=== PATIENT | female | born 1945 | race Caucasian/White ===

== ENCOUNTER 2018-01-30 14:25 | Emergency (ER) | payer SELFPAY ==
[2018-01-30 14:26] VITALS: BP 155/72; PULSE 81; RESP 18; TEMP 36.7; O2SAT 96
--- NOTE | 2018-01-30 15:11 | ED.VISSUMM ---
- ER Visit Summary Date of Service: 01/30/18 Chief Complaint: Eye redness History of Present Illness: The patient is a 72 F presents to the emergency department eye redness. Patient states over the past 24 hours, she began have some redness and crusting of her right eye. She states since moved her left. She describes a mild irritation. She has had some mild nasal drainage. She denies any fevers or chills. She wears glasses. She denies any visual change. Patient has no history of eye surgery or immunosuppression. She is otherwise healthy. Physical Examination: Name is relatively unremarkable. The patient does have evidence of conjunctivitis of both eyes. There is some scant crusting of the lids. There is cobblestoning beneath the lids. There is no hyphema. There is no hypopyon. Extraocular muscles are intact. Accommodation is normal. Test Results: [] Emergency Department Course and Treatment: Patient's exam is unremarkable. She does have evidence of conjunctivitis. I do feel that this is likely viral in nature, but given the irritation I will cover her with topical antibiotics. Patient is comfortable this plan of care. She will be given outpatient ophthalmology follow-up if she does not have improvement over the next 24 hours. Patient will be discharged home. Treatment Plan: [] Disposition: Discharge Impression: 1. Conjunctivitis This note was generated with [employer] dictation software. It may contain incorrect words, spelling, and punctuation that were not noted in review of the chart prior to signing ED Disposition - Plan for ED Patient: Chief Complaint: Eye Problem Instructions: ED Conjunctivitis Bacterial Prescriptions: Erythromycin Ophthalmic 1 applic EACH EYE 4X/DAY #1 opth.tube Referrals: Jim Cottrell MD [STAFF PHYSICIAN] - 1-2 Days if not improving
--- NOTE | 2018-01-30 15:24 | NURSING ---
per pt, vision is same as it usually is. needs to have cataract surgery
[2018-01-30] MEDS: Erythromycin Base 1 OPTH.TUBE 1 APPLIC EACH EYE (15:25)
== END 2018-01-30 15:34 | disposition home or self-care (01) ==
PROVIDERS: Emergency Provider Emergency Medicine; Family Provider Family Medicine; PCP Family Medicine
DX: H10.9 Unspecified conjunctivitis (principal)
CPT/HCPCS: 99283

== ENCOUNTER 2019-09-22 05:27 | Inpatient (IN) | payer MEDICARE, SELFPAY ==
[2019-09-22] VITALS (8 sets, daily range): BP systolic 152–180; BP diastolic 72–88; PULSE 76–87; RESP 18–20; TEMP 36.6–37.4; O2SAT 94–97; BMI 29.1
--- NOTE | 2019-09-22 05:36 | CT_ITS ---
STUDY: CT ABDOMEN AND PELVIS WITHOUT CONTRAST REASON FOR EXAM: Female, 73 years old. UPPER ABDOMINAL PAIN SINCE LAST AFTERNON RADIATION DOSAGE (If Supplied By Facility): CTDIvol = ( 13.99 ) mGy, DLP = ( 805.93 ) mGycm TECHNIQUE: Transaxial images were obtained from the dome of the diaphragm to the symphysis pubis without oral contrast, and without intravenous contrast. Sagittal and coronal images were reconstructed. Individualized dose optimization techniques were used for this CT. COMPARISON: None. FINDINGS: The visualized lung bases are unremarkable. The visualized portions of the heart are within normal limits. Normal liver. Normal gallbladder and extrahepatic biliary system. Normal spleen. Normal pancreas. Normal bilateral adrenal glands. Normal right kidney. Normal left kidney. There is a small hiatal hernia. There are dilated loops of the small intestine with a non-distended colon consistent with a partial small bowel obstruction. There is thickening of the rubio of the distal ileal loops has nonspecific appearance suggesting edema may be due to gastroenteritis, hemorrhage or ischemia. Normal colon. The appendix is visualized and appears normal. Normal abdominal aorta. Normal inferior vena cava. Normal retroperitoneum. Normal urinary bladder. Normal abdominal wall. Normal osseous structures. CT/Abdomen/Pelvis W IV Cont ONLY IMPRESSION: Partial small bowel obstruction. There is thickening of the rubio of the distal ileal loops has nonspecific appearance suggesting edema may be due to gastroenteritis, hemorrhage or ischemia. Electronically Signed: Violetta Navarro, at 6:45 EST Tel , Service support ,
[2019-09-22 05:42] LABS: Absolute Lymphocyte Count 1.05 X10^3/uL (0.83-4.51); Absolute Neutrophil Count 5.7 X10^3/uL (2.0-7.7); Basophil# 0.03 X10^3/uL; Basophil% 0.4 % (0-1); Eosinophil# 0.03 X10^3/uL; Eosinophils% 0.4 % (0-5); Hematocrit 43.3 % (37-47); Hemoglobin 14.1 g/dL (12.0-15.0); Lymphocyte # 1.05 X10^3/ul (4.0); Lymphocyte % 14.4 % (19-41); Mean Corp Hgb Conc 32.6 g/dL (32-36); Mean Corpuscular Hgb 30.4 pg (27.0-32.0); Mean Corpuscular Volume 93.3 fL (81-99); Mean Platelet Vol. 9.6 fl (6.2-12.0); Monocyte# 0.48 X10^3/uL; Monocyte% 6.6 % (0-10); NRBC Flagged by Analyzer 0 % (0-5); Neutrophil # 5.69 X10^3/uL (2.7-7.7); Neutrophil % 77.8 % (47-70); Platelet Count 230 K/mm3 (150-450); RBC Distribution Width CV 12.7 % (11.6-14.6); RBC Distribution Width SD 43.4 fl (35.1-43.9); Red Blood Count 4.64 M/mm3 (4.2-5.4); White Blood Count 7.3 K/mm3 (4.4-11.0)
[2019-09-22] MEDS: 0.9% Normal Saline 1,000 ML 1000 ML IV (05:42)
[2019-09-22] MEDS: Ondansetron 4 MG/2 ML Vial IV (05:42)
[2019-09-22] MEDS: Morphine 4 MG/ML Syringe IV (05:42)
[2019-09-22 05:58] LABS: ALB/GLOB Ratio 1.1 RATIO (0.9-2.4); AST(SGOT) 17 U/L (15-37); Alanine Aminotransfer ALT/SGPT 20 U/L (13-56); Albumin, Serum 3.8 g/dL (3.2-5.0); Alkaline Phosphatase 109 U/L (45-117); Anion Gap 7 (5-15); BUN 20 mg/dL (7-18); BUN/Creat Ratio 26.5 RATIO (10-20); Chloride 105 mmol/L (98-107); Creatinine, Serum 0.76 mg/dL (0.55-1.02); EST Glomerular Filtration Rate 80 mL/min (>60); Est Glom Filt Rate - Afr Amer 97 mL/min (>60); Estimated Creatinine Clearance 38.94 ml/min; Globulin 3.4 g/dL (2.2-4.2); Glucose 112 mg/dL (74-106); Lipase 84 U/L (73-393); Protein, Total 7.2 g/dL (6.4-8.2); Sodium Level 138 mmol/L (136-145)
[2019-09-22 06:31] LABS: Bacteria 0 SEEN /hpf (None Seen); Mucous, Urine 0 SEEN /hpf (<or=2+)
[2019-09-22 06:32] LABS: Color, Urine Yellow (Yellow); Glucose, Dipstick Normal (Normal); Leukocyte Esterase-Dipstick 25 /ul (Negative); Nitrite-Dipstick Negative (Negative); Occult Blood-Urine 10 /ul (Negative); Protein-Dipstick Negative (Negative); Urine Bilirubin Dipstick Negative (Negative); Urine Clarity Clear (Clear); Urine Urobilinogen Normal (Normal)
[2019-09-22 06:33] LABS: Ketone-Dipstick 150 mg/dl (Negative)
--- NOTE | 2019-09-22 06:36 | ED.DCSUM_ITS ---
- ER Visit Summary Date of Service: 09/22/19 Chief Complaint: Abdominal pain History of Present Illness: The patient is a 73 F who presents from home with abdominal pain. The pain is in her epigastric region. It started yesterday in the afternoon. Nothing seemed to bring it on or make it worse. Nothing seems to make it better. It does not radiate. Associated with some nausea. Denies vomiting or other GI symptoms. Denies chest pain or shortness of breath. Denies any urinary symptoms. Denies fevers. Denies change in medications. History of appendectomy. Physical Examination: Afebrile and vital signs unremarkable. Alert and oriented. No acute distress, but appears uncomfortable. Heart regular rate and rhythm. Lungs clear. Abdomen soft, but tender in the epigastric region. No guarding or rebound. Skin appears normal. Test Results: CBC normal. Glucose 112 and BUN 20. Hepatic panel and lipase normal. Urinalysis unremarkable. CT pending at the time of this dictation. Emergency Department Course and Treatment: Patient was treated with fluids, morphine, Zofran while awaiting results. Blood work unremarkable. Urinalysis unremarkable. CT showed a partial small bowel obstruction with wall thickening of the distal ileum. Uncertain etiology. Patient is not having distention or vomiting right now, so I did not place an NG tube. Patient will need pain control, fluids. I called the hospitalist for admission. The patient's appendectomy in the remote past was performed by Dr. Galaviz. Dr. Alston accepted the patient. Asked me to notify Dr. Blanton. Dr. Blanton advised NG tube. Placement and X-ray pending. Dr. Denton aware. Treatment Plan: As above Disposition: Admission Impression: 1. Partial small bowel obstruction This note was generated with [employer] software. It may contain incorrect words, spelling, and punctuation that were not noted in review of the chart prior to signing ED Disposition - Plan for ED Patient: Referrals: Jason Zamorano MD [Primary Care Provider] -
[2019-09-22 06:37] LABS: Red Blood Cells-Urine 0-5 SEEN /hpf (0-5); Squamous Epithelial Cells - UA 0-5 SEEN /hpf (5-10); White Blood Cells 0-5 SEEN /hpf (0-5)
--- NOTE | 2019-09-22 07:13 | NURSING ---
MED SURG SBO PAINTSIL
--- NOTE | 2019-09-22 07:13 | PCM.HP.STD ---
Problem List (1) SBO (small bowel obstruction) Status: Acute History of Present Illness Date of Admission: 09/22/19 Chief Complaint: Abdominal pain - 2 days The patient is a 73 year old F no significant past medical history who presents with abdominal discomfort, crampy in nature, nonradiating, with no relieving or aggravating factor that happened the evening before admission. Patient has a history of laparoscopic appendectomy done [address] Galaviz. She had 2 loose stools last night. She has nausea but has not vomited. She denied fever or chills. Vitals in the ED was temperature 98.7 F, heart rate 85, blood pressure 169/88, respiratory rate 18, SPO2 was 96% on room air. Admitting blood work showed unremarkable CBC D and CMP. UA was also unremarkable. CT of the abdomen and pelvis shows small hiatal hernia, dilated loops of small intestine with nondistended colon, history of partial small bowel obstruction and thinning of the distal ileal loops. 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 Denies: Anorexia, Chills, Fever, Malaise, Weight Change Eyes: Denies: Blurred vision, Cataracts, Conjunctivae Inflammation, Double vision, Pain, Redness, Vision Change HEENT: Denies: Difficulty Hearing, Difficulty Swallowing, Head Aches, Hearing Changes, Sinus Congestion, Sinus Drainage Cardiovascular: Denies: Chest Pain, Claudication, Orthopnea, Palpitations Respiratory: Denies: Cough, Hemoptysis, Shortness of breath at rest, Shortness of breath upon exertion, Sputum production Gastrointestinal: Reports: Abdominal Pain, Diarrhea, Nausea. Denies: Dyspepsia, Hematemesis, Hematochezia, Melena, Vomiting Genitourinary: Denies: Dysuria, Frequency Musculoskeletal: Denies: Joint Pain, Joint stiffness, Joint swelling, Joint Tenderness Skin: Denies: Rash, Wounds Neurological: Denies: Blurred vision, Difficulty swallowing, Focal weakness, Numbness, Tingling Psychiatric: Denies: Anxiety, Depression, Homicidal Ideations, Suicidal Ideations Hematologic/ Lymphatic: Denies: Easy Bruising, Easy Bleeding VTE Information - Inpt Only VTE Present on Admission: No VTE Pharm Prophylaxis ordered?: Yes Patient Problems: Active and Suspected Problems SBO (small bowel obstruction) (Acute) - Physical Exam Vitals/I&O's: Vital Signs Temp Pulse Resp BP Pulse Ox 98.7 F 85 18 169/88 H 96 09/22/19 05:28 09/22/19 05:28 09/22/19 05:28 09/22/19 05:28 09/22/19 05:28 Oxygen Delivery Method Room Air Weight: 70 kg Body Mass Index (BMI) 29.1 General: Alert, Oriented x3, Cooperative, No apparent distress HEENT: Atraumatic, PERRLA, EOMI, Normocephalic Oral: Moist Mucosa Neck: Supple Lungs: Clear to auscultation, Normal air movement Cardiovascular: Regular rate, Regular Rhythm, Normal S1, Normal S2, No murmurs Abdomen: Bowel Sounds Present, Soft, Non-Distended, Hyperactive Bowel Sounds, Tender - over the upper abdomen, with guarding, no rebound tenderness Extremities: No edema Skin: No rashes, No breakdown Musculoskeletal: No Tenderness to Palpation of Joints or Extremities Lymphatic: No Cervical, Supraclavicular, or Inguinal Adenopathy Neurological: Cranial nerves II-XII grossly intact, Neuro grossly intact Psych/Mental Status: Normal Affect, Appropriate Laboratory Results 09/22/19 05:30: WBC 7.3, RBC 4.64, Hgb 14.1, Hct 43.3, MCV 93.3, MCH 30.4, MCHC 32.6, RDW Std Deviation 43.4, RDW Coeff of Renée 12.7, Plt Count 230, MPV 9.6, Immature Gran % (Auto) 0.400, Neut % (Auto) 77.8 H, Lymph % (Auto) 14.4 L, [place] % (Auto) 6.6, Eos % (Auto) 0.4, Baso % (Auto) 0.4, Absolute Neuts (auto) 5.7, Absolute Lymphs (auto) 1.05, Nucleated RBC % 0 09/22/19 05:30: Sodium 138, Potassium 4.0, Chloride 105, Carbon Dioxide 26.0, Anion Gap 7, BUN 20 H, Creatinine 0.76, Estim Creat Clear Calc 38.94, Est GFR (MDRD) Af Amer 97, Est GFR (MDRD) Non-Af 80, BUN/Creatinine Ratio 26.5 H, Glucose 112 H, Calcium 9.0, Total Bilirubin 0.90, AST 17, ALT 20, Alkaline Phosphatase 109, Total Protein 7.2, Albumin 3.8, Globulin 3.4, Albumin/Globulin Ratio 1.1, Lipase 84 09/22/19 06:27: Urine Color Yellow, Urine Clarity Clear, Urine pH 7.0, Ur Specific [place] 1.010, Urine Protein Negative, Urine Glucose (UA) Normal, Urine Ketones 150 H, Urine Occult Blood 10 H, Urine Nitrite Negative, Urine Bilirubin Negative, Urine Urobilinogen Normal, Ur Leukocyte Esterase 25 H, Urine RBC 0-5 SEEN, Urine WBC 0-5 SEEN, Ur Squamous Epith Cells 0-5 SEEN, Urine Bacteria 0 SEEN, Urine Mucus 0 SEEN Assessment/Plan All Active Problems SBO (small bowel obstruction) (Acute) Appendicitis (Acute) 73 year old F no significant past medical history who presents with abdominal discomfort and found to have partial small bowel obstruction on CT scan of abdomen and pelvis. 1. Partial small bowel obstruction likely secondary to adhesions. History of laparoscopic appendectomy 2 years ago Will admit to med-surg floor, keep NPO, gentle IVF, pain control, general surgery consult 2. Elevated BP, likely related to pain, no history of hypertension Will continue to monitor 3. DVT PPx- Heparin SC Code Visit Inpatient E&M: 28854 Init Hosp L2
--- NOTE | 2019-09-22 07:13 | NURSING ---
DR LORENZO HANNON AND DR AVITIA TALKED TO HER
--- NOTE | 2019-09-22 10:43 | CM.UR ---
RN CM Assessment Introduced role of RN CM to patient. Patient is alert and able to participate in RN CM Assessment. Care providers, pharmacy, and demographics verified. Daughter at bedside. Presentation: Abd pain Admit Dx: SBO Re-Admit: no Barriers/Issues: None PCP: Dr. Jason Zamorano however states she hasn't seen him in years. States she will probably go back to him but offered her list of PCPs and she did accept it. States doesn't hurt to look. [facility] and [facility] assigned her a PCP. Explained all she has to do is call them and tell them that she has one and what their name is. Verb understanding. Specialists: Denies Preferred Pharmacy: [facility] Insurance: [employer] [facility] Rx Benefit: [employer] LNOK: Daughter, [place] LW/HPOA: None. States she is possibly interested. Accepted booklet regarding Advance directives. Instructed can be done while she is here or after discharge by contacting our SW department. Verb understanding. Living Arrangements: currently living with cousin as new roof being put onto her house. Usually lives in 2 story home with daughter. Denies any accessibility issues. ADL?s: Denies needing any help with any ADLs but daughter does and is willing to help as needed. Transportation: States drives or rides with daughter. Denies transportation issues. DME: None DME co: none HHC: None SNF: None Goal: Home DC PLAN: Home, no needs identified. Dionne Moon RN, CCM.
--- NOTE | 2019-09-22 10:50 | RAD_ITS ---
STUDY: X-RAY - ABDOMEN/PELVIS REASON FOR EXAM: Female, 73 years old. NG placement TECHNIQUE: Single AP view of the abdomen / pelvis. COMPARISON: None. FINDINGS: Enteric tube extends to the gastric body. There is an unremarkable bowel gas pattern. There is no demonstrated free abdominal air. The visualized liver, spleen and kidneys are grossly normal in size and morphology. Normal soft tissue structures. There are diffuse degenerative changes of the visualized lumbar spine. RAD/Abdomen Single View IMPRESSION: Enteric tube extends to the stomach. Electronically Signed: Sanjiv Mcconnell MD ([place]) at 11:19 EST , Service support ,
--- NOTE | 2019-09-22 11:09 | PCM.CONS.B ---
- Consult Date of Consult: 09/22/19 - Reason for Consult Chief Complaint: abdominal pain History of Present Illness: 73 y/o WF was feeling fine until yesterday when she noted abdominal pain of upper abdomen and bloating. States pain was crampy and with crescendo and decrescendo but constant She then developed nausea and then had emesis in ED. Last passed flatus and had bowel movement yesterday. Presented to [facility] ED. Normal WBC but with left shift of differential. CT scan revealed - There is a small hiatal hernia. There are dilated loops of the small intestine with a non-distended colon consistent with a partial small bowel obstruction. There is thickening of the rubio of the distal ileal loops has nonspecific appearance suggesting edema may be due to gastroenteritis, hemorrhage or ischemia. Normal colon. The appendix is visualized and appears normal. Past Medical History: denies major medical illnesses Past Surgical History: laparoscopic appendectomy cataract surgery Medications: denies taking chronic medications Allergies: Has no known drug allergies Social history: TOB use denies Review of Systems: General - feeling weak, denies fevers Cardiovascular denies chest pain, denies history of heart attack Pulmonary denies shortness of breath, denies coughing up blood Gastrointestinal as per HPI Neurological denies seizures, Genitourinary denies burning with urination, denies blood in urine Hematological denies spontaneous/prolonged bleeding Skin denies open non healing wounds Musculoskeletal no new muscular disorders Endocrine denies diabetes or thyroid problems Psychological denies hallucinations Physical examination: Vital signs Ht: 5'1 Wt: 154# Temp 98.7F BP 165/86 HR 83 RR 16 General WD/WN WF in no apparent distress, alert and oriented, not septic appearing HEENT Normocephalic. EOM intact with sclera clear and no icterus noted. Neck is supple with no jugular venous distention noted. Trachea is midline. Lungs normal breath sounds in all lung roman. No rales/rhonchi/wheezing noted. No labored breathing noted, such as retractions. No cough heard. Heart normal heart sounds, regular rate. Abdomen soft and benign. minimal tenderness in lower abdomen, no peritoneal signs Extremities no calf tenderness noted. No pitting edema noted. . Genitourinary/Rectal deferred Skin normal skin integrity. Neurological non focal Psychological normal affect, patient is calm and appropriate IMPRESSION: partial small bowel obstruction Discussion/Plan: continue IV hydration recommend PPI IV use NG tube for proximal bowel decompression Will follow patient with you
[2019-09-22] MEDS: Morphine 2 MG/ML Syringe IV (11:33)
[2019-09-22] MEDS: hydrALAZINE 20 MG/ML Vial 5 MG IV (18:23)
[2019-09-23] VITALS (7 sets, daily range): BP systolic 149–175; BP diastolic 71–94; PULSE 81–90; RESP 16–18; TEMP 36.8–37.7; O2SAT 94–99
[2019-09-23 05:38] LABS: Absolute Lymphocyte Count 1.02 X10^3/uL (0.83-4.51); Absolute Neutrophil Count 4.1 X10^3/uL (2.0-7.7); Basophil# 0.03 X10^3/uL; Basophil% 0.5 % (0-1); Eosinophil# 0.07 X10^3/uL; Eosinophils% 1.2 % (0-5); Hematocrit 38.8 % (37-47); Hemoglobin 12.6 g/dL (12.0-15.0); Lymphocyte # 1.02 X10^3/ul (4.0); Lymphocyte % 17.8 % (19-41); Mean Corp Hgb Conc 32.5 g/dL (32-36); Mean Corpuscular Hgb 30.2 pg (27.0-32.0); Mean Platelet Vol. 10.3 fl (6.2-12.0); Monocyte# 0.46 X10^3/uL; NRBC Flagged by Analyzer 0 % (0-5); Neutrophil # 4.14 X10^3/uL (2.7-7.7); Neutrophil % 72.2 % (47-70); Platelet Count 205 K/mm3 (150-450); RBC Distribution Width SD 44.4 fl (35.1-43.9); Red Blood Count 4.17 M/mm3 (4.2-5.4); White Blood Count 5.7 K/mm3 (4.4-11.0)
[2019-09-23 06:03] LABS: AST(SGOT) 12 U/L (15-37); Alanine Aminotransfer ALT/SGPT 14 U/L (13-56); Alkaline Phosphatase 85 U/L (45-117); Anion Gap 4 (5-15); BUN 9 mg/dL (7-18); BUN/Creat Ratio 13.3 RATIO (10-20); Calcium,Total 8.4 mg/dL (8.5-10.1); Chloride 110 mmol/L (98-107); Creatinine, Serum 0.68 mg/dL (0.55-1.02); EST Glomerular Filtration Rate 91 mL/min (>60); Est Glom Filt Rate - Afr Amer 110 mL/min (>60); Estimated Creatinine Clearance 38.94 ml/min; Globulin 2.9 g/dL (2.2-4.2); Glucose 125 mg/dL (74-106); Potassium 3.8 mmol/L (3.5-5.1); Protein, Total 5.9 g/dL (6.4-8.2); Sodium Level 140 mmol/L (136-145)
--- NOTE | 2019-09-23 09:13 | PN_ITS ---
Patient Problems: Active and Suspected Problems SBO (small bowel obstruction) (Acute) Subjective: Did not get much sleep last night, she is tolerating the NG tube okay. Denies any nausea. No bowel movement or flatus. Vitals/I&O's: Vital Signs Temp Pulse Resp BP Pulse Ox 98.7 F 84 18 149/79 H 94 09/23/19 03:31 09/23/19 03:31 09/23/19 03:31 09/23/19 03:31 09/23/19 03:31 Oxygen Delivery Method Room Air Weight: 153 lb 14.122 oz Body Mass Index (BMI) 29.1 Intake and Output for Last 24 Hours 09/21/19 09/22/19 09/23/19 23:59 23:59 23:59 Intake Total 2498.33 / 2598.33 1211.67 / 1211.67 Output Total 300 / 1150 1300 / 1300 Balance 2198.33 / 1448.33 -88.33 / -88.33 General: Alert, Oriented x3, Cooperative, No apparent distress HEENT: Atraumatic, PERRLA, EOMI, Normocephalic Oral: Dry Mucosa Neck: Supple, No JVD Lungs: Clear to auscultation, Normal air movement, No rhonchi, No wheeze, No rales, Diminished Cardiovascular: Regular rate, Regular Rhythm, Normal S1, Normal S2, No murmurs Abdomen: Soft, Non-Distended, No Hepato-splenomegaly, Tender - Mild epigastric Extremities: No edema, Capillary Refill Less than 3 Seconds Skin: No rashes, No breakdown Neurological: Neuro grossly intact, Sensory exam intact to light touch and pain Psych/Mental Status: Normal Affect, Appropriate Laboratory Results 09/23/19 05:01: WBC 5.7, RBC 4.17 L, Hgb 12.6, Hct 38.8, MCV 93.0, MCH 30.2, MCHC 32.5, RDW Std Deviation 44.4 H, RDW Coeff of Renée 13.0, Plt Count 205, MPV 10.3, Immature Gran % (Auto) 0.300, Neut % (Auto) 72.2 H, Lymph % (Auto) 17.8 L, [place] % (Auto) 8.0, Eos % (Auto) 1.2, Baso % (Auto) 0.5, Absolute Neuts (auto) 4.1, Absolute Lymphs (auto) 1.02, Nucleated RBC % 0 09/23/19 05:01: Sodium 140, Potassium 3.8, Chloride 110 H, Carbon Dioxide 26.0, Anion Gap 4 L, BUN 9, Creatinine 0.68, Estim Creat Clear Calc 38.94, Est GFR (MDRD) Af Amer 110, Est GFR (MDRD) Non-Af 91, BUN/Creatinine Ratio 13.3, Glucose 125 H, Calcium 8.4 L, Total Bilirubin 0.80, AST 12 L, ALT 14, Alkaline Phosphatase 85, Total Protein 5.9 L, Albumin 3.0 L, Globulin 2.9, Albumin/Globulin Ratio 1.0 Current Medications Acetaminophen (Tylenol) 650 mg PO Q6H PRN PRN PRN Reason: Pain Score 1-10/Temp > 100.7 F Hydralazine HCl (Apresoline Iv) 5 mg IV Q6H PRN PRN PRN Reason: BLOOD PRESSURE Last Admin: 09/22/19 18:23 Dose: 5 mg Documented by: Potassium Chloride/Dextrose/Sod Cl () 1,000 mls @ 100 mls/hr IV .Q10H THIERNO Last Admin: 09/23/19 07:07 Dose: 100 mls/hr Documented by: Pantoprazole Sodium 40 mg/ (Sodium Chloride) 110 mls @ 330 mls/hr IV Q12 [facility] Last Infusion: 09/22/19 21:39 Dose: Infused Documented by: Morphine Sulfate () 2 mg IV Q3H PRN PRN PRN Reason: Pain Score 6-10/10 Last Admin: 09/22/19 11:33 Dose: 2 mg Documented by: Ondansetron HCl (Zofran) 4 mg IV Q8H PRN PRN PRN Reason: NAUSEA/VOMITING Sodium Chloride () 10 - 40 ml IV UD PRN PRN Reason: SALINE FLUSH Medical Necessity - Tobacco Use Smoking Status: Never smoker Tobacco Use: Non-smoker Assessment/Plan All Active Problems SBO (small bowel obstruction) (Acute) Appendicitis (Acute) 1. Small bowel obstruction, partial -Appreciate surgical assistance -Continue with IV fluids and n.p.o. -Continue with NG tube to low intermittent wall suction she has had about 450 mL's out of her NG tube 2. Elevated BP -She does not have a history of hypertension this is likely related to discomfort from her bowel obstruction -No medications, will monitor DVT: Kalani Code Visit Inpatient E&M: 22609 Subs Hosp L2
[2019-09-23] MEDS: Enoxaparin 40 MG/0.4 ML Syringe SC (10:27)
--- NOTE | 2019-09-23 10:27 | PCM.PN.SRG ---
Patient Problems: Active and Suspected Problems SBO (small bowel obstruction) (Acute) Subjective: patient states that she has passed small amounts of flatus no abdominal pain or bloating at this time - Physical Exam Vitals/I&O's: Vital Signs Temp Pulse Resp BP Pulse Ox 98.7 F 84 18 149/79 H 94 09/23/19 03:31 09/23/19 03:31 09/23/19 03:31 09/23/19 03:31 09/23/19 03:31 Oxygen Delivery Method Room Air Weight: 69.8 kg Body Mass Index (BMI) 29.1 Intake and Output for Last 24 Hours 09/21/19 09/22/19 09/23/19 23:59 23:59 23:59 Intake Total 2498.33 / 2598.33 1211.67 / 1211.67 Output Total 300 / 1150 1300 / 1300 Balance 2198.33 / 1448.33 -88.33 / -88.33 General: Alert, Oriented x3 HEENT: Atraumatic Oral: Moist Mucosa Neck: Supple Lungs: Normal air movement Abdomen: Bowel Sounds Present, Soft Laboratory Results 09/23/19 05:01: WBC 5.7, RBC 4.17 L, Hgb 12.6, Hct 38.8, MCV 93.0, MCH 30.2, MCHC 32.5, RDW Std Deviation 44.4 H, RDW Coeff of Renée 13.0, Plt Count 205, MPV 10.3, Immature Gran % (Auto) 0.300, Neut % (Auto) 72.2 H, Lymph % (Auto) 17.8 L, [place] % (Auto) 8.0, Eos % (Auto) 1.2, Baso % (Auto) 0.5, Absolute Neuts (auto) 4.1, Absolute Lymphs (auto) 1.02, Nucleated RBC % 0 09/23/19 05:01: Sodium 140, Potassium 3.8, Chloride 110 H, Carbon Dioxide 26.0, Anion Gap 4 L, BUN 9, Creatinine 0.68, Estim Creat Clear Calc 38.94, Est GFR (MDRD) Af Amer 110, Est GFR (MDRD) Non-Af 91, BUN/Creatinine Ratio 13.3, Glucose 125 H, Calcium 8.4 L, Total Bilirubin 0.80, AST 12 L, ALT 14, Alkaline Phosphatase 85, Total Protein 5.9 L, Albumin 3.0 L, Globulin 2.9, Albumin/Globulin Ratio 1.0 Current Medications Acetaminophen (Tylenol) 650 mg PO Q6H PRN PRN PRN Reason: Pain Score 1-10/Temp > 100.7 F Enoxaparin Sodium (Lovenox) 40 mg SC DAILY [facility] Hydralazine HCl (Apresoline Iv) 5 mg IV Q6H PRN PRN PRN Reason: BLOOD PRESSURE Last Admin: 09/22/19 18:23 Dose: 5 mg Documented by: Potassium Chloride/Dextrose/Sod Cl () 1,000 mls @ 100 mls/hr IV .Q10H THIERNO Last Admin: 09/23/19 07:07 Dose: 100 mls/hr Documented by: Pantoprazole Sodium 40 mg/ (Sodium Chloride) 110 mls @ 330 mls/hr IV Q12 THIERNO Last Infusion: 09/22/19 21:39 Dose: Infused Documented by: Morphine Sulfate () 2 mg IV Q3H PRN PRN PRN Reason: Pain Score 6-10/10 Last Admin: 09/22/19 11:33 Dose: 2 mg Documented by: Ondansetron HCl (Zofran) 4 mg IV Q8H PRN PRN PRN Reason: NAUSEA/VOMITING Sodium Chloride () 10 - 40 ml IV UD PRN PRN Reason: SALINE FLUSH Medical Necessity - Tobacco Use Smoking Status: Never smoker Tobacco Use: Non-smoker Assessment/Plan All Active Problems SBO (small bowel obstruction) (Acute) Appendicitis (Acute) Impression: partial SBO - resolving Discussion/Plan will d/c NG tube, encourage patient ambulation, can start on sips of clear liquids (no carbonated beverages) may consider d/c to home later this evening or tomorrow, after trial of solid diet I would like to see patient as follow up - she has no primary physician (she states)
[2019-09-23] MEDS: hydrALAZINE 20 MG/ML Vial 5 MG IV (10:33)
[2019-09-24 03:00] VITALS: BP 133/80; PULSE 82; RESP 16; TEMP 36.6; O2SAT 96
[2019-09-24 06:31] LABS: Anion Gap 3 (5-15); BUN 8 mg/dL (7-18); BUN/Creat Ratio 12.8 RATIO (10-20); Calcium,Total 8.5 mg/dL (8.5-10.1); Chloride 115 mmol/L (98-107); Creatinine, Serum 0.62 mg/dL (0.55-1.02); EST Glomerular Filtration Rate 100 mL/min (>60); Est Glom Filt Rate - Afr Amer 121 mL/min (>60); Estimated Creatinine Clearance 38.94 ml/min; Glucose 107 mg/dL (74-106); Potassium 3.6 mmol/L (3.5-5.1); Sodium Level 144 mmol/L (136-145)
--- NOTE | 2019-09-24 09:46 | PN_ITS ---
Patient Problems: Active and Suspected Problems SBO (small bowel obstruction) (Acute) Subjective: No issues overnight, she was able to sleep a little bit. Denies any significant abdominal pain. She did tolerate her clear liquid diet yesterday pretty well. Vitals/I&O's: Vital Signs Temp Pulse Resp BP Pulse Ox 97.9 F 82 16 133/80 H 96 09/24/19 03:00 09/24/19 03:00 09/24/19 03:00 09/24/19 03:00 09/24/19 03:00 Oxygen Delivery Method Room Air Weight: 154 lb 1.65 oz Body Mass Index (BMI) 29.1 Intake and Output for Last 24 Hours 09/22/19 09/23/19 09/24/19 23:59 23:59 23:59 Intake Total 2498.33 / 2598.33 3026.67 / 3326.67 905 / 905 Output Total 300 / 1150 2100 / 2500 400 / 400 Balance 2198.33 / 1448.33 926.67 / 826.67 505 / 505 General: Alert, Oriented x3, Cooperative, No apparent distress HEENT: Atraumatic, PERRLA, EOMI, Normocephalic Oral: Dry Mucosa Neck: Supple, No JVD Lungs: Clear to auscultation, Normal air movement, No rhonchi, No wheeze, No rales, Diminished Cardiovascular: Regular rate, Regular Rhythm, Normal S1, Normal S2, No murmurs Abdomen: Soft, Non-Distended, No Hepato-splenomegaly, nontender Extremities: No edema, Capillary Refill Less than 3 Seconds Skin: No rashes, No breakdown Neurological: Neuro grossly intact, Sensory exam intact to light touch and pain Psych/Mental Status: Normal Affect, Appropriate Laboratory Results 09/24/19 05:10: Sodium 144, Potassium 3.6, Chloride 115 H, Carbon Dioxide 26.0, Anion Gap 3 L, BUN 8, Creatinine 0.62, Estim Creat Clear Calc 38.94, Est GFR (MDRD) Af Amer 121, Est GFR (MDRD) Non-Af 100, BUN/Creatinine Ratio 12.8, Glucose 107 H, Calcium 8.5 Current Medications Acetaminophen (Tylenol) 650 mg PO Q6H PRN PRN PRN Reason: Pain Score 1-10/Temp > 100.7 F Enoxaparin Sodium (Lovenox) 40 mg SC DAILY [facility] Last Admin: 09/23/19 10:27 Dose: 40 mg Documented by: Hydralazine HCl (Apresoline Iv) 5 mg IV Q6H PRN PRN PRN Reason: BLOOD PRESSURE Last Admin: 09/23/19 10:33 Dose: 5 mg Documented by: Potassium Chloride/Dextrose/Sod Cl () 1,000 mls @ 100 mls/hr IV .Q10H [facility] Last Admin: 09/24/19 03:59 Dose: 100 mls/hr Documented by: Morphine Sulfate () 2 mg IV Q3H PRN PRN PRN Reason: Pain Score 6-05/24 Last Admin: 09/22/19 11:33 Dose: 2 mg Documented by: Ondansetron HCl (Zofran) 4 mg IV Q8H PRN PRN PRN Reason: NAUSEA/VOMITING Pantoprazole Sodium (Protonix) 40 mg PO BID [facility] Sodium Chloride () 10 - 40 ml IV UD PRN PRN Reason: SALINE FLUSH Medical Necessity - Tobacco Use Smoking Status: Never smoker Tobacco Use: Non-smoker Assessment/Plan All Active Problems SBO (small bowel obstruction) (Acute) Appendicitis (Acute) 1. Small bowel obstruction, partial -Appreciate surgical assistance -We will DC her IV fluids -NG tube is out, continue with a regular diet and see how she tolerates we will reevaluate later this afternoon and if she does well could potentially go home today otherwise possibly tomorrow 2. Elevated BP -She does not have a history of hypertension this is likely related to discomfort from her bowel obstruction -No medications, will monitor DVT: Lovenox Code Visit Inpatient E&M: 36447 Subs Hosp L2
[2019-09-24 10:00] VITALS: BP 141/83; PULSE 71; RESP 16; TEMP 36.5; O2SAT 99
[2019-09-24] MEDS: Enoxaparin 40 MG/0.4 ML Syringe SC (10:15)
[2019-09-24] MEDS: Pantoprazole Sodium 40 MG Tablet PO (10:15)
--- NOTE | 2019-09-24 14:29 | DCINST_ITS ---
- Discharge Diagnoses Current Active Problems: Current Active and Chronic Problems SBO (small bowel obstruction) (Acute) You will use the following diet at home:: Regular - take it slow with advancing your diet Your food should be the consistency of: Regular Your liquids should be the consistency of: Regular/Thin Discharge Activity: Return to Normal Activity Call your doctor if you observe: Fever of 101 or Higher, Shortness of breath, Dizziness, Fainting spells, Swelling in the ankles, Chest pain, Increased palpitations (irregular heartbeat) Allergies/Adverse Reactions: Allergies No Known Allergies Allergy (Verified 09/22/19 05:28) Medications to take at Discharge NK 09/22/19 Primary Care Physician: Jason Zamorano MD [Primary Care Provider] - Please follow up with your Primary Care Physician in: 3-5 days Test Results: Test results from this visit will be discussed in further detail at your follow- up appointment, if applicable. Please Follow Up With: Jacki Blanton MD When: 2-4 weeks
--- NOTE | 2019-09-24 15:04 | DS.PCM_ITS ---
Discharge Date and Diagnosis - Problem List Patient Problems: Active and Suspected Problems SBO (small bowel obstruction) (Acute) Date of Admission: 09/22/19 Date of Discharge: 09/24/19 - Primary Discharge Diagnosis Active and Suspected Problems SBO (small bowel obstruction) (Acute) Hospital Course and Treatment Imaging Results: CT Abd/Pelvis: IMPRESSION: Partial small bowel obstruction. There is thickening of the rubio of the distal ileal loops has nonspecific appearance suggesting edema may be due to gastroenteritis, hemorrhage or ischemia. Consults: General Surgery Operations: None Procedures: None Summary of Care Provided: Per HPI: The patient is a 73 year old F no significant past medical history who presents with abdominal discomfort, crampy in nature, nonradiating, with no relieving or aggravating factor that happened the evening before admission. Patient has a history of laparoscopic appendectomy done [address] Galaviz. She had 2 loose stools last night. She has nausea but has not vomited. She denied fever or chills. Vitals in the ED was temperature 98.7 F, heart rate 85, blood pressure 169/88, respiratory rate 18, SPO2 was 96% on room air. Admitting blood work showed unremarkable CBC D and CMP. UA was also unremarkable. CT of the abdomen and pelvis shows small hiatal hernia, dilated loops of small intestine with nondistended colon, history of partial small bowel obstruction and thinning of the distal ileal loops. Hospital Course: 1. Partial small bowel [id number] female with a history of an appendectomy 2 years ago presents with abdominal pain and signs of partial small bowel obstruction on CT scan. She initially had an NG tube placed with decent drainage and she had resolution of her abdominal pain and her nausea with the NG tube. Surgery removed her NG tube yesterday started on clears which she tolerated. She also had flatus as well as BMs and therefore she was advanced to a regular diet in the afternoon she did tolerate lunch today transitive she had no nausea no abdominal pain and continued to have flatus and therefore would like to go home. I discussed with her the risks and benefits of discharge and I recommended that she follow-up both with her PCP and her surgeon. She did have issues with an elevated blood pressure but that was likely secondary to a small bowel obstruction therefore I do recommend that she have outpatient follow-up to make sure that her blood pressure normalizes. Patient Problems: Active and Suspected Problems SBO (small bowel obstruction) (Acute) - Physical Exam Vitals/I&O's: Vital Signs Temp Pulse Resp BP Pulse Ox 97.7 F L 71 16 141/83 H 99 09/24/19 10:00 09/24/19 10:00 09/24/19 10:00 09/24/19 10:00 09/24/19 10:00 Oxygen Delivery Method Room Air Weight: 154 lb 1.65 oz Body Mass Index (BMI) 29.1 Intake and Output for Last 24 Hours 09/22/19 09/23/19 09/24/19 23:59 23:59 23:59 Intake Total 2498.33 / 2598.33 3026.67 / 3326.67 1515 / 1515 Output Total 300 / 1150 2100 / 2500 400 / 400 Balance 2198.33 / 1448.33 926.67 / 826.67 1115 / 1115 Laboratory Results 09/24/19 05:10: Sodium 144, Potassium 3.6, Chloride 115 H, Carbon Dioxide 26.0, Anion Gap 3 L, BUN 8, Creatinine 0.62, Estim Creat Clear Calc 38.94, Est GFR (MDRD) Af Amer 121, Est GFR (MDRD) Non-Af 100, BUN/Creatinine Ratio 12.8, Glucose 107 H, Calcium 8.5 Current Medications Acetaminophen (Tylenol) 650 mg PO Q6H PRN PRN PRN Reason: Pain Score 1-10/Temp > 100.7 F Enoxaparin Sodium (Lovenox) 40 mg SC DAILY [facility] Last Admin: 09/24/19 10:15 Dose: 40 mg Documented by: Hydralazine HCl (Apresoline Iv) 5 mg IV Q6H PRN PRN PRN Reason: BLOOD PRESSURE Last Admin: 09/23/19 10:33 Dose: 5 mg Documented by: Morphine Sulfate () 2 mg IV Q3H PRN PRN PRN Reason: Pain Score 6-10/10 Last Admin: 09/22/19 11:33 Dose: 2 mg Documented by: Ondansetron HCl (Zofran) 4 mg IV Q8H PRN PRN PRN Reason: NAUSEA/VOMITING Pantoprazole Sodium (Protonix) 40 mg PO BID [facility] Last Admin: 09/24/19 10:15 Dose: 40 mg Documented by: Sodium Chloride () 10 - 40 ml IV UD PRN PRN Reason: SALINE FLUSH Discharge Activity: Return to Normal Activity Call your doctor if you observe: Fever of 101 or Higher, Shortness of breath, Dizziness, Fainting spells, Swelling in the ankles, Chest pain, Increased palpitations (irregular heartbeat) Home Medications: Medications to take at Discharge NK 09/22/19 Primary Care Physician: Jason Zamorano MD [Primary Care Provider] - Please follow up with your Primary Care Physician in: 3-5 days Please Follow Up With: Jacki Blanton MD When: 2-4 weeks Disposition: Home Minutes spent on discharge:: 35 Patient Condition:: Stable Medical Necessity - Tobacco Use Smoking Status: Never smoker Tobacco Use: Non-smoker Meaningful Use Info Meaningful Use Diagnoses (Choose all that apply): None applicable Code Visit Inpatient E&M: 87560 Disch Hosp
[2019-09-24 16:00] VITALS: BP 144/87; PULSE 78; RESP 16; TEMP 37.1; O2SAT 98
--- NOTE | 2019-09-24 16:14 | PCM.PN.SRG ---
Patient Problems: Active and Suspected Problems SBO (small bowel obstruction) (Acute) Subjective: Patient tolerated regular diet, passing flatus, denies abdominal pain - Physical Exam Vitals/I&O's: Vital Signs Temp Pulse Resp BP Pulse Ox 97.7 F L 71 16 141/83 H 99 09/24/19 10:00 09/24/19 10:00 09/24/19 10:00 09/24/19 10:00 09/24/19 10:00 Oxygen Delivery Method Room Air Weight: 69.9 kg Body Mass Index (BMI) 29.1 Intake and Output for Last 24 Hours 09/22/19 09/23/19 09/24/19 23:59 23:59 23:59 Intake Total 2498.33 / 2598.33 3026.67 / 3326.67 1515 / 1515 Output Total 300 / 1150 2100 / 2500 400 / 400 Balance 2198.33 / 1448.33 926.67 / 826.67 1115 / 1115 General: Alert, Oriented x3 Oral: Moist Mucosa Neck: Supple Lungs: Normal air movement Abdomen: Bowel Sounds Present, Soft Laboratory Results 09/24/19 05:10: Sodium 144, Potassium 3.6, Chloride 115 H, Carbon Dioxide 26.0, Anion Gap 3 L, BUN 8, Creatinine 0.62, Estim Creat Clear Calc 38.94, Est GFR (MDRD) Af Amer 121, Est GFR (MDRD) Non-Af 100, BUN/Creatinine Ratio 12.8, Glucose 107 H, Calcium 8.5 Current Medications Acetaminophen (Tylenol) 650 mg PO Q6H PRN PRN PRN Reason: Pain Score 1-10/Temp > 100.7 F Enoxaparin Sodium (Lovenox) 40 mg SC DAILY [facility] Last Admin: 09/24/19 10:15 Dose: 40 mg Documented by: Hydralazine HCl (Apresoline Iv) 5 mg IV Q6H PRN PRN PRN Reason: BLOOD PRESSURE Last Admin: 09/23/19 10:33 Dose: 5 mg Documented by: Morphine Sulfate () 2 mg IV Q3H PRN PRN PRN Reason: Pain Score 6-10/10 Last Admin: 09/22/19 11:33 Dose: 2 mg Documented by: Ondansetron HCl (Zofran) 4 mg IV Q8H PRN PRN PRN Reason: NAUSEA/VOMITING Pantoprazole Sodium (Protonix) 40 mg PO BID [facility] Last Admin: 09/24/19 10:15 Dose: 40 mg Documented by: Sodium Chloride () 10 - 40 ml IV UD PRN PRN Reason: SALINE FLUSH Medical Necessity - Tobacco Use Smoking Status: Never smoker Tobacco Use: Non-smoker Assessment/Plan All Active Problems SBO (small bowel obstruction) (Acute) Appendicitis (Acute) Impression: partial SBO - resolved Discussion/Plan can d/c home I would like to see patient as follow up in 1-2 weeks, thank you- she has no primary physician (she states)
== END 2019-09-24 17:10 | disposition home or self-care (01) | DRG 390 ==
LOC: ED 06:01 → MS3 07:27
PROVIDERS: Admitting Provider Internal Medicine; Emergency Provider Emergency Medicine; PCP Family Medicine; Visit Provider Family Medicine
DX: K56.51 Intestinal adhesions [bands], with partial obstruction (principal); K44.9 Diaphragmatic hernia without obstruction or gangrene; R03.0 Elevated blood-pressure reading, without diagnosis of hypertension; Z90.49 Acquired absence of other specified parts of digestive tract
CPT/HCPCS: 36415; 74018; 74177; 80048; 80053; 81001; 83690; 85025; 97161; 97165; 97802; 99251; 99284; J7030; Q9967; A4216; G0463; J2405

== ENCOUNTER 2020-02-05 17:13 | Emergency (ER) | payer MEDICARE, SELFPAY ==
[2019-09-22 08:14] VITALS: BMI 29.1
[2020-02-05 17:14] VITALS: BP 155/88; PULSE 78; RESP 18; TEMP 36.6; O2SAT 96; BMI 29.2
[2020-02-05 17:30] VITALS: O2SAT 98
--- NOTE | 2020-02-05 17:33 | ED.VIS.GEN ---
History of Present Illness Chief Complaint: Cough Informant: Patient Onset: Days Context: Gradual Onset Timing: Intermittent Current Severity: Mild Maximum Severity: Moderate Narrative: The patient is an otherwise healthy 74-year-old female that presents to the emergency department from her work for evaluation. The patient states that on Tuesday, she had a coughing fit. She states it lasted a few minutes and then went away. She states that she does have some allergies to things at work. Since then, she is felt like she is had a mild upper respiratory infection. She has had some nasal congestion. Her cough has markedly improved. She denies any fevers or chills. She is had no nausea, vomiting, diarrhea, or change in smell. The patient has no history of immunosuppression. She has no history of underlying heart disease or COPD. She does not smoke. Prior similar symptoms: No Recent Illness/Hospitalization: No Past Medical History - Allergies and Home Meds Allergies/Adverse Reactions: Allergies No Known Allergies Allergy (Verified 02/05/20 17:16) Primary Care Physician: Jason Zamorano MD [NON-STAFF] - Prior records reviewed: Yes Past Medical History: - - No significant medical history Surgical History: appendectomy - laparoscopic 2 years ago, cataract Smoking Status: Never smoker - Family History Maternal Family History: Reports: No pertinent history Paternal Family History: Reports: No pertinent history Review of Systems General: Denies: Chills, Fever, Sweats Eyes: Denies: Visual changes - bilaterally, Diplopia ENT: Denies: Rhinorrhea, Sore throat Cardiovascular: Denies: Chest pain, Palpitations Respiratory: Reports: Cough. Denies: Dyspnea, Dyspnea on exertion Gastrointestinal: Denies: Abdominal pain, Nausea, Vomiting, Diarrhea, Melena, Hematochezia Genitourinary: Denies: Dysuria, Hematuria, Frequency Musculoskeletal: Denies: Back pain, Extremity Pain Skin: Denies: Rash, Wounds Neurological: Denies: Headache, Weakness, Numbness Physical Exam Vital Signs/Narrative: Vital Signs Temp Pulse Resp BP Pulse Ox 02/05/20 17:14 97.9 F 78 18 155/88 H 96 Inital Vital Signs reviewed: Yes General: Well nourished, Well developed, No Acute Distress Head: Normocephalic, Atraumatic Eyes: Perrl, EOMI ENT: Moist mucous membranes, No rhinorrhea Neck: Supple, Nontender Cardiovascular: Regular rate, Regular rhythm, No murmurs Respiratory: No distress, CTA bilaterally, Chest nontender Abdomen: Soft, Nontender, Nondistended, Normal bowel sounds Back: Nontender, Normal Inspection Extremities: Nontender, No edema Skin: Normal color, No rash Neurological: Alert, Oriented x3, Cranial nerves II-XII grossly intact, Normal Strength, Normal Sensation Psychological: Normal affect, Normal Mood Diagnostic/Tx/Re-eval Clinical Impression(s) from Imaging Studies Chest X-Ray 02/05/20 17:44 IMPRESSION: 1. No acute cardiopulmonary pathology. 2. Severe T8 compression fracture and mild depression of the superior T7 vertebral endplate, presumably chronic. There is a notable exaggerated mid dorsal kyphosis. Electronically Signed: Lauro Cooley MD at 18:52 EDT , Service support , - Medical Decision Making The patient presents 2 days after having a coughing fit. She does have some nasal congestion. Her lungs are clear without wheezes or rhonchi. She is had no fever, chills, other infectious symptoms. At this point, I do not feel that she requires any testing for COVID 19. She is not on any current medications. Chest x-ray was obtained was unremarkable. The patient was reassured. She has had no other symptoms. I do feel that she is okay to return to work. She will be discharged home. Impression 1. Cough-resolved ED Disposition - Plan for ED Patient: Instructions: ED Upper Resp Infec No Abx Tx Referrals: Jason Zamorano MD [NON-STAFF] -
[2020-02-05 17:40] VITALS: BP 145/92; PULSE 69; RESP 15; O2SAT 96
--- NOTE | 2020-02-05 17:44 | RAD_ITS ---
STUDY: X-RAY CHEST REASON FOR EXAM: Female, 74 years old. COUGH TECHNIQUE: PA and lateral views of the chest. Patient is mildly rotated to the left on the frontal image. COMPARISON: None. FINDINGS: Subcentimeter calcification projecting in the anterior lung field on the lateral view appears to be a calcified left axillary lymph node on the frontal image. There may be a small calcified granuloma in the right superior sulcus. The lungs are otherwise clear and expanded. There is no demonstrated pleural abnormality. Normal size heart. Normal mediastinum and olga. Normal visualized pulmonary arteries. There is mild atherosclerotic calcification of the aortic arch. There are degenerative changes of the visualized thoracic spine. There is severe compression fracture deformity of the T8 vertebra and mild depression of the superior T7 vertebral endplate, resulting in prominent mid thoracic kyphosis. 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 There is no demonstrated abnormality of the visualized soft tissue structures of the upper abdomen. RAD/Chest PA and Lateral IMPRESSION: 1. No acute cardiopulmonary pathology. 2. Severe T8 compression fracture and mild depression of the superior T7 vertebral endplate, presumably chronic. There is a notable exaggerated mid dorsal kyphosis. Electronically Signed: Lauro Cooley MD at 18:52 EDT , Service support ,
[2020-02-05 19:09] VITALS: BP 152/76; PULSE 86; RESP 18; O2SAT 96
== END 2020-02-05 19:10 | disposition home or self-care (01) ==
LOC: ED 18:07
PROVIDERS: Emergency Provider Emergency Medicine
DX: R05 Cough (principal); R09.81 Nasal congestion
CPT/HCPCS: 71046; 99282

== ENCOUNTER 2020-04-04 10:48 | Emergency (ER) | payer MEDICARE, SELFPAY ==
[2020-04-04 10:49] VITALS: BP 183/86; PULSE 86; RESP 18; TEMP 35.8; O2SAT 96; BMI 28.0
--- NOTE | 2020-04-04 11:12 | ED.DCSUM_ITS ---
History of Present Illness Informant: Patient Onset: Yesterday Context: Gradual Onset Timing: Continuous Quality: Abscess Location: Left axilla Current Severity: Moderate Maximum Severity: Moderate Worsened by: Movement and palpation Relieved by: Nothing Associated Symptoms: Denies Narrative: 74-year-old female has a left axillary abscess that she noticed yesterday is been getting worse it is red and swollen and painful. No active drainage. She has no history of MRSA or abscess. No breast pain breast lumps discharge from her nipple she has no constitutional symptoms and overall feels well Prior similar symptoms: No Recent Illness/Hospitalization: No <Shukri Rodas - Last Filed: 04/04/20 11:13> <Ck Ivory - Last Filed: 04/04/20 11:36> Chief Complaint: Abscess Past Medical History Prior records reviewed: Yes Past Medical History: - - Bowel obstruction Surgical History: appendectomy - laparoscopic 2 years ago, cataract Smoking Status: Never smoker - Family History Maternal Family History: Reports: No pertinent history Paternal Family History: Reports: No pertinent history <Shukri Rodas - Last Filed: 04/04/20 11:13> <Ck Ivory - Last Filed: 04/04/20 11:36> - Allergies and Home Meds Allergies/Adverse Reactions: Allergies No Known Allergies Allergy (Verified 04/04/20 10:50) Primary Care Physician: Gianna Alvarado MD [STAFF PHYSICIAN] - 3-5 Days Review of Systems All systems negative except as indicated General: Denies: Chills, Fever, Sweats Eyes: Denies: Visual changes - bilaterally, Diplopia ENT: Denies: Rhinorrhea, Sore throat Cardiovascular: Denies: Chest pain, Palpitations Respiratory: Denies: Dyspnea, Cough, Dyspnea on exertion Gastrointestinal: Denies: Abdominal pain, Nausea, Vomiting, Diarrhea, Melena, Hematochezia Genitourinary: Denies: Dysuria, Hematuria, Frequency Musculoskeletal: Denies: Back pain, Extremity Pain Skin: Reports: Abscess. Denies: Rash, Wounds Neurological: Denies: Headache, Weakness, Numbness <Shukri Rodas - Last Filed: 04/04/20 11:13> Physical Exam Vital Signs/Narrative: Vital Signs Temp Pulse Resp BP Pulse Ox 04/04/20 10:49 96.5 F L 86 18 183/86 H 96 Inital Vital Signs reviewed: Yes General: Well nourished, Well developed, No Acute Distress Head: Normocephalic, Atraumatic Eyes: Perrl, EOMI ENT: Moist mucous membranes, No rhinorrhea Neck: Supple, Nontender Cardiovascular: Regular rate, Regular rhythm, No murmurs Respiratory: No distress, CTA bilaterally, Chest nontender Abdomen: Soft, Nontender, Nondistended, Normal bowel sounds Back: Nontender, Normal Inspection Extremities: Nontender, No edema Skin: Normal color, No rash, - - 1 x 3 cm abscess left axilla. No surrounding lymphadenopathy. There is no abnormalities noted of the left breast on inspection or palpation. Neurological: Alert, Oriented x3, Cranial nerves II-XII grossly intact, Normal Strength, Normal Sensation Psychological: Normal affect, Normal Mood <Shukri Rodas - Last Filed: 04/04/20 11:13> Vital Signs/Narrative: Vital Signs Temp Pulse Resp BP Pulse Ox 04/04/20 11:33 98.0 F 86 18 183/86 H 96 04/04/20 11:31 86 18 183/86 H 96 04/04/20 10:49 96.5 F L 86 18 183/86 H 96 <Ck Ivory - Last Filed: 04/04/20 11:36> Diagnostic/Tx/Re-eval - Medical Decision Making Under sterile conditions with Betadine prep 18-gauge needle was used to insert into the abscess and I was able to aspirate about 1.5 cc of purulent material. I remove the needle. There is no further drainage from the wound and it is no longer fluctuant. She will be placed on doxycycline and will be discharged with advice on warm compresses and follow-up in 2 to 3 days with her primary care physician. <Shukri Rodas - Last Filed: 04/04/20 11:13> - Medical Decision Making I performed a history and physical examination of the patient and discussed management plan with the physician catalog library assistant. I reviewed the physician catalog library assistant's note and agree with the documented findings and plan of care. Patient with a small abscess in the left axilla. Appears to be more of a sebaceous cyst based on the material that came out. Place her on antibiotics. She was advised that when she is healed that she continues to have a small rubbery nodule she should follow-up with surgery for definitive care. Ck Ivory DO, MS <Ck Ivory - Last Filed: 04/04/20 11:36> ED Disposition <Shukri Rodas - Last Filed: 04/04/20 11:13> <Ck Ivory - Last Filed: 04/04/20 11:36> - Plan for ED Patient: Disposition: Home or Assisted Living Diagnosis: Cutaneous abscess of left axilla Instructions: ED Abscess Incision And Drainage Prescriptions: Doxycycline 100 mg PO BID #10 cap Prescription Printed Referrals: Gianna Alvarado MD [STAFF PHYSICIAN] - 3-5 Days
[2020-04-04 11:31] VITALS: BP 183/86; PULSE 86; RESP 18; O2SAT 96
[2020-04-04 11:33] VITALS: BP 183/86; PULSE 86; RESP 18; TEMP 36.7; O2SAT 96
== END 2020-04-04 11:38 | disposition home or self-care (01) ==
LOC: ED 11:27
PROVIDERS: Emergency Provider Physician Assistant Medical
DX: L02.412 Cutaneous abscess of left axilla (principal)
CPT/HCPCS: 10160; 10060; 99282

== ENCOUNTER 2021-05-21 18:26 | Emergency (ER) | payer MEDICARE, SELFPAY ==
[2021-05-21 18:26] VITALS: BP 150/103; PULSE 74; RESP 18; TEMP 36.6; O2SAT 94; BMI 27.3
[2021-05-21 18:30] VITALS: BP 150/103; PULSE 74; RESP 18; TEMP 36.6; O2SAT 94
--- NOTE | 2021-05-21 20:15 | EDS_ITS ---
HPI History of Present Illness Chief Complaint: Ear Problem Narrative Narrative: Patient is a 75-year-old female who states for the past 4 to 5 days she has had nasal congestion sore throat and bilateral ear pain with mild cough. She states she is vaccinated against Covid and did test negative for this about 4 days ago when her symptoms began. She does report however her daughter was not vaccinated and currently tested positive for the infection. She states she is concerned that she may have Covid but is also noticed bilateral ear pain and is worried about a possible infection and therefore comes in for evaluation. PFSH PFSH Home Medications albuterol sulfate [Ventolin HFA] 1 - 2 puff INHALATION Q4H PRN PRN #1 device 05/21/21 [Rx Last Taken Unknown] dexamethasone [Decadron] 6 mg PO DAILY #10 tab 05/21/21 [Rx Last Taken Unknown] Allergy/AdvReac Type Severity Reaction Status Date / Time No Known Allergies Allergy Verified 05/21/21 18:28 Surgical History (Updated 05/21/21 @ 18:32 by Fiona Hager) History of appendectomy Social History Smoking Status: Never smoker ROS ROS ED Constitutional Constitutional ED: Denies chills or fever(s) ENT ENT ED: Reports ear pain, rhinorrhea and sore throat Cardiovascular Cardiovascular: Denies chest pain Respiratory/Chest Respiratory/Chest: Reports cough; Denies dyspnea Gastrointestinal Gastrointestinal: Denies abdominal pain, diarrhea, nausea or vomiting Genitourinary Genitourinary ED: Denies dysuria Musculoskeletal Musculoskeletal: Denies myalgias Integumentary Denies rash Neurologic Neurologic: Denies headache(s) Hematologic/Lymphatic Hematologic/Lymphatic: Denies easy bleeding or easy bruising EXAM Physical Exam Const Vital Signs: 05/21/21 18:26 05/21/21 18:30 Temperature 98 F 98 F Temperature Source Temporal Temporal Pulse Rate 74 74 Respiratory Rate 18 18 Blood Pressure 150/103 H 150/103 H Blood Pressure Mean 118 118 Pulse Ox 94 94 Oxygen Delivery Method Room Air Room Air Positive well nourished and well developed General Appearance ED: well developed HEENT HEENT Narrative: Nasal mucosa is hyperemic and boggy and posterior pharynx displays cobblestoning consistent with sinus drainage. Bilateral canals have approximately 70% wax impaction and TMs are retracted without secondary changes to suggest infection Eyes PERRL and EOMs intact bilaterally Neck supple Neck Narrative: Positive anterior cervical lymphadenopathy Resp normal respiratory effort and clear to auscultation bilaterally Cardio regular rate and regular rhythm GI normal to inspection, nondistended, normoactive bowel sounds, non-tender and non-distended Auscultation: normoactive bowel sounds Palpation: soft Extremity normal to inspection Neuro oriented x3 and CN's II-XII intact bilaterally Sensorium / Orientation: alert Psych mental status grossly normal Skin no rashes or lesions noted MDM MDM MDM Narrative Medical decision making narrative: Patient presented to the ER afebrile and in n o acute respiratory distress with stable room air pulse ox. Her exam showed cerumen impaction and this was irrigated by the nurse. On reevaluation the tympanic membranes show pressure but no secondary changes to suggest infection. Her Covid swab is positive consistent with her exposure and constellation of symptoms. However as she is not requiring supplemental oxygen there is no need for placement in the hospital and she is safe for discharge Discharge Plan Triage Chief Complaint: Ear Problem ED Provider: Milton Sinha Dx/Rx/DC Orders Clinical Impression: COVID-19, Acute dysfunction of eustachian tube Instructions: Coronavirus Disease 2019 (COVID-19): Caring for Yourself or Others Prescriptions: New dexamethasone [Decadron] 6 mg tablet 6 mg PO DAILY Qty: 10 RF: 0 albuterol sulfate [Ventolin HFA] 90 mcg/actuation HFA aerosol inhaler 1 - 2 puff inhalation Q4H PRN PRN (Reason: Wheezing) Qty: 1 RF: 0 Primary Care Provider: Care Physician,No Primary Referrals: Manoj Jimenez MD [STAFF PHYSICIAN] - 3-5 Days if not improving Care Physician,No Primary [Primary Care Provider] - Disposition Disposition: Home, Self Care
[2021-05-21 20:25] VITALS: BP 150/103; PULSE 74; RESP 18; TEMP 36.6; O2SAT 94
== END 2021-05-21 20:26 | disposition home or self-care (01) ==
PROVIDERS: Emergency Provider Emergency Medicine
DX: U07.1 COVID-19 (principal); H61.23 Impacted cerumen, bilateral; H69.80 Other specified disorders of Eustachian tube, unspecified ear
CPT/HCPCS: 87426; 99283

== ENCOUNTER 2022-02-15 07:05 | Emergency (ER) | payer OTHER, MEDICARE, SELFPAY ==
[2022-02-15 07:06] VITALS: BP 191/98; PULSE 75; RESP 18; TEMP 36.6; O2SAT 98; BMI 27.3
--- NOTE | 2022-02-15 07:23 | EDS_ITS ---
HPI History of Present Illness Chief Complaint: Lower Extremity Injury Narrative Narrative: This is a 76-year-old female with a history of a knee injury on January 16. She states she was at work and tripped over a hose landing on her left knee. She states she had original imaging done at that time at the urgent care and stated that she might of had possible fractures on it. She does not know where they would have been. She states that she has been back to the urgent care couple of times and she has follow-up currently pending with [facility]. She states that about a week and a half ago she was walking up the stairs and felt a pop in her medial left knee. She states that this caused her more pain. She went back to urgent care who again told her she needs to follow-up with [facility]. She is taking Naprosyn and Tylenol for pain. She is complaining that her knee clicks sometimes when she walks. [facility] Medications NK 02/15/22 [History Last Taken Unknown] Allergy/AdvReac Type Severity Reaction Status Date / Time No Known Allergies Allergy Verified 02/15/22 07:09 Surgical History History of appendectomy Social History Smoking Status: Never smoker ROS ROS ED Constitutional Constitutional ED: Denies chills or fever(s) Eyes Eyes: Denies change in vision or diplopia ENT ENT ED: Denies rhinorrhea or sore throat Cardiovascular Cardiovascular: Denies chest pain or palpitations Respiratory/Chest Respiratory/Chest: Denies cough or dyspnea Gastrointestinal Gastrointestinal: Denies abdominal pain or constipation Genitourinary Genitourinary ED: Denies dysuria or hematuria Musculoskeletal Musculoskeletal: Reports other Details: Left medial knee pain Integumentary Denies abscess or Abrasions Neurologic Neurologic: Denies headache(s) or paresthesias Psychiatric Psychiatric: Denies anxiety or depression EXAM Physical Exam Const Vital Signs: 02/15/22 07:06 Temperature 97.9 F Temperature Source Temporal Pulse Rate 75 Respiratory Rate 18 Blood Pressure 191/98 H Blood Pressure Mean 129 Pulse Ox 98 Oxygen Delivery Method Room Air Positive well nourished General Appearance ED: NAD HEENT Reports moist mucous membranes normocephalic and atraumatic Eyes PERRL Resp normal respiratory effort and no retractions Cardio regular rate and regular rhythm Extremity Extremity Narrative: Left knee is tender to palpation on the medial aspect along the joint line. There is pain elicited with valgus strain. No ligament laxity. Left knee extensor mechanism is intact. Neuro oriented x3 and CN's II-XII intact bilaterally Sensorium / Orientation: alert Psych mental status grossly normal Skin no wounds MDM MDM MDM Narrative Medical decision making narrative: I suspect the patient likely has a meniscal tear. I tried to review her x-ray read on [employer], however its not available there. The patient has no documentation of her read. I did obtain an x-ray of the left knee which on my interpretation shows no acute fracture or subluxation. Radiologist does agree. Patient was offered Ultram for home to help with her pain but she declines. She states she will continue to take her Naprosyn. She has work restrictions already. She is instructed to ice, elevate, rest, compress the left knee is much as possible. She already has follow-up with [facility] next week. Return precautions discussed. Impression: 1. Left knee meniscal tear Lab Data Attestation: I reviewed the patient's lab results. Radiography Diagnostic Testing: Clinical Impression(s) from Imaging Studies Knee X-Ray 02/15/22 07:34 IMPRESSION: Normal x-ray examination of the knee. Electronically Signed: Eric Avilez MD at 8:04 EDT , Discharge Plan Triage Chief Complaint: Lower Extremity Injury ED Provider: Donald Tanner Dx/Rx/DC Orders Prescriptions: No Action NK Primary Care Provider: Care Physician,No Primary Referrals: Care Physician,No Primary [Primary Care Provider] -
--- NOTE | 2022-02-15 07:34 | RAD_ITS ---
STUDY: X-RAY - LEFT KNEE REASON FOR EXAM: Female, 76 years old. pain TECHNIQUE: 4 view(s) of the knee. COMPARISON: None. FINDINGS: Normal visualized distal femur. Normal visualized proximal tibia and fibula. Normal proximal tibiofibular articulation. Normal medial femorotibial compartment. Normal lateral femorotibial compartment. Normal patellofemoral articulation. The soft tissue structures are unremarkable. RAD/Knee 4 or More Views IMPRESSION: Normal x-ray examination of the knee. Electronically Signed: Eric Avilez MD at 8:04 EDT ,
[2022-02-15 08:28] VITALS: PULSE 82; RESP 17; O2SAT 97
== END 2022-02-15 08:29 | disposition home or self-care (01) ==
PROVIDERS: Emergency Provider Student in an Organized Health Care Education/Training Program; Visit Provider Student in an Organized Health Care Education/Training Program
DX: S83.207A Unspecified tear of unspecified meniscus, current injury, left knee, initial encounter (principal); Z79.1 Long term (current) use of non-steroidal anti-inflammatories (NSAID); W18.09XA Striking against other object with subsequent fall, initial encounter; Y99.0 Civilian activity done for income or pay
CPT/HCPCS: 73564; 99282

== ENCOUNTER 2023-05-11 22:59 | Emergency (ER) | payer MEDICARE, SELFPAY ==
[2023-05-11 23:00] VITALS: BP 182/83; PULSE 91; RESP 16; TEMP 36.6; O2SAT 97; BMI 27.4
--- NOTE | 2023-05-11 23:11 | RAD_ITS ---
INDICATION: Cough EXAMINATION/TECHNIQUE: X-RAY - XR Chest 1 View COMPARISON: February 05 2020. FINDINGS: LINES/DEVICES: None. LUNGS: No consolidation, edema or effusion. No pneumothorax. MEDIASTINUM AND CARDIOVASCULAR STRUCTURES: Cardiac silhouette not enlarged. Mild aortic atherosclerosis. BONES AND SOFT TISSUES: Unremarkable. Left lateral chest wall unchanged calcifications RAD/Chest 1 View (Portable) IMPRESSION: No radiographic evidence of acute cardiopulmonary disease. Electronically Signed: Hector Flores MD at 23:28 EDT ,
--- NOTE | 2023-05-11 23:11 | EX.ED.DYSGE1 ---
HPI History of Present Illness Chief Complaint: General Illness Narrative Narrative: 77-year-old female who denies significant past medical history presents with generalized illness, weakness, and mild upper respiratory infection type symptoms. She states that this afternoon she took a nap, and awoke from her slumber and states she did not feel well. She has rhinorrhea and mild nasal congestion and occasional cough but no fevers or chills. Mild nausea no vomiting. She denies any dysuria or hematuria. No exacerbating or alleviating factors. PFSH PFSH Home Medications cephalexin 500 mg capsule 500 mg PO BID #14 caps 05/12/23 [Rx Last Taken Unknown] Allergy/AdvReac Type Severity Reaction Status Date / Time No Known Allergies Allergy Verified 05/11/23 23:02 Surgical History History of appendectomy Social History Smoking Status: Never smoker ROS ROS ED ROS Narrative Constitutional: No fever, no chills. HEENT: No sore throat. No neck pain. No loss of vision. Positive nasal congestion and rhinorrhea. Cardiovascular: No chest pain. No palpitations. No pedal edema. Respiratory: Occasional cough, no shortness of breath. Abdominal: No abdominal pain. Positive nausea. No vomiting. Genitourinary: No dysuria. No hematuria. Musculoskeletal: No myalgias. No arthralgias. Neurologic: No headaches. No dizziness. No lightheadedness. Skin: No rash. No change in color. Psychiatric: No depression. No anxiety. EXAM Physical Exam Narrative Exam Narrative: Afebrile. Vital signs noted. HEENT: Normocephalic. Atraumatic. PERRL, EOMI. Neck soft and supple. No point tenderness or step off. Cardiovascular: Regular rate and rhythm. No murmurs, rubs, or gallops appreciated. Respiratory: No tachypnea. Lungs clear to auscultation bilaterally. Gastrointestinal: Abdomen soft, nontender, with normoactive bowel sounds. No rebound or guarding. Neurological: Awake. Alert. Nonfocal, nonlateralizing. Skin: No rash. Normal color. No pallor. Musculoskeletal: No pedal edema. Full range of motion extremities. Const Vital Signs: 05/11/23 23:00 05/11/23 23:31 Temperature 97.9 F Temperature Source Temporal Pulse Rate 91 Respiratory Rate 16 Respiratory Effort Normal Non-Labored Respiratory Pattern Normal Blood Pressure 182/83 H Blood Pressure Mean 116 Pulse Ox 97 Oxygen Delivery Method Room Air MDM MDM MDM Narrative Medical decision making narrative: In the differential diagnosis is upper respiratory infection and viral syndrome including COVID and influenza, she may be mildly dehydrated as well. I have lower suspicion for pneumonia, but she did cough on examination. Chest x-ray will be obtained. She is currently afebrile. I reviewed her laboratory work from today, she has a normal white count of 5.3, hemoglobin normal at 13.8, hematocrit 42.3, platelet count 190. Her electrolyte panel shows no evidence of dehydration with a normal sodium of 138, potassium normal at 3.8, chloride normal at 106, BUN normal at 13 and creatinine 0.77. Glucose is appropriately elevated at 105 with a normal anion gap of 6. Her urinalysis shows occult blood of 150 but negative for nitrites. There are 10-25 WBCs and 1+ bacteria. This will be sent for culture. She was given her first dose of Keflex for cystitis and a prescription written for the next 7 days to take twice a day. Of most significance is her COVID swab which is positive. This explains her symptoms of headache, and upper respiratory infection type symptoms. Chest x-ray in 1 view interpreted by myself independently shows no evidence of pneumonia or pneumothorax. I reviewed the radiology report which confirms my independent interpretation. At this point in time, I feel she can be discharged safely home with follow-up to a primary care provider. I do not feel she requires admission at this time. Her pulse ox is 97% on room air without hypoxia. Treatment be symptomatic with [id number] medications. Return instructions to the emergency department were reviewed. Disposition is discharged home in stable condition. History & Record Review Discussion w/independent historian: Patient Lab Data Attestation: I reviewed the patient's lab results. Labs: Laboratory Results - last 24 hr 05/11/23 05/11/23 23:22 23:37 WBC 5.3 RBC 4.48 Hgb 13.8 Hct 42.3 MCV 94.4 MCH 30.8 MCHC 32.6 RDW Std Deviation 44.9 H RDW Coeff of Renée 13.0 Plt Count 190 MPV 9.7 Immature Gran % (Auto) 0.900 Neut % (Auto) 81.2 H Lymph % (Auto) 7.9 L [place] % (Auto) 9.0 Eos % (Auto) 0.2 Baso % (Auto) 0.8 Absolute Neuts (auto) 4.3 Absolute Lymphs (auto) 0.42 L Nucleated RBC % 0 Sodium 138 Potassium 3.8 Chloride 106 Carbon Dioxide 26.0 Anion Gap 6 BUN 13 Creatinine 0.77 Estim Creat Clear Calc 36.68 Est GFR (MDRD) Af Amer 93 Est GFR (MDRD) Non-Af 77 BUN/Creatinine Ratio 16.8 Glucose 105 Calcium 8.7 Urine Color Yellow Urine Clarity Clear Urine pH 5.0 Ur Specific [place] 1.025 Urine Protein 15 H Urine Glucose (UA) Normal Urine Ketones 50 H Urine Occult Blood 150 H Urine Nitrite Negative Urine Bilirubin Negative Urine Urobilinogen Normal Ur Leukocyte Esterase 500 H Urine RBC 0-5 SEEN Urine WBC 10-25 SEEN Ur Squamous Epith Cells 0-5 SEEN Ur Transition Epith Cell 0-5 SEEN Urine Bacteria 1+ Urine Mucus 1+ Radiography Diagnostic Testing: Clinical Impression(s) from Imaging Studies Chest X-Ray 05/11/23 23:11 IMPRESSION: No radiographic evidence of acute cardiopulmonary disease. Electronically Signed: Hector Flores MD at 23:28 EDT Reading Location ID and State: [facility] / MD Tel , Service support , Discharge Plan Triage Chief Complaint: General Illness ED Provider: Vamsi Hubbard Dx/Rx/DC Orders Clinical Impression: UTI (urinary tract infection), COVID-19 Instructions: Coronavirus Disease 2019 (COVID-19): Caring for Yourself or Others, ED Cystitis Female Adult Prescriptions: New cephalexin 500 mg capsule 500 mg PO BID Qty: 14 0RF Primary Care Provider: Care Physician,No Primary Referrals: Court Shane DO [Med Staff - [employer]] - 1 Week if not improving Care Physician,No Primary [Primary Care Provider] - Disposition Disposition: Home, Self Care
[2023-05-11 23:29] LABS: Absolute Lymphocyte Count 0.42 X10^3/uL (0.83-4.51); Absolute Neutrophil Count 4.3 X10^3/uL (2.0-7.7); Basophil# 0.04 X10^3/uL; Basophil% 0.8 % (0-1); Differential Indicated SCAN CRITERIA MET; Eosinophil# 0.01 X10^3/uL; Eosinophils% 0.2 % (0-5); Hematocrit 42.3 % (37-47); Hemoglobin 13.8 g/dL (12.0-15.0); Lymphocyte # 0.42 X10^3/ul (0.83-4.51); Lymphocyte % 7.9 % (19-41); Mean Corp Hgb Conc 32.6 g/dL (32-36); Mean Corpuscular Hgb 30.8 pg (27.0-32.0); Mean Corpuscular Volume 94.4 fL (81-99); Mean Platelet Vol. 9.7 fl (6.2-12.0); Monocyte# 0.48 X10^3/uL; NRBC Flagged by Analyzer 0 % (0-5); Neutrophil # 4.33 X10^3/uL (2.7-7.7); Neutrophil % 81.2 % (47-70); POSITIVE DIFFERENTIAL YES; Platelet Count 190 K/mm3 (150-450); RBC Distribution Width SD 44.9 fl (35.1-43.9); Red Blood Count 4.48 M/mm3 (4.2-5.4); White Blood Count 5.3 K/mm3 (4.4-11.0)
[2023-05-11] MEDS: cloNIDine HCl 0.1 MG Tablet PO (23:35)
[2023-05-11] MEDS: 0.9% Normal Saline (1000mL) 1,000 ML 1000 ML IV (23:35)
[2023-05-11 23:43] LABS: Anion Gap 6 (5-15); BUN 13 mg/dL (7-18); BUN/Creat Ratio 16.8 RATIO (10-20); Calcium,Total 8.7 mg/dL (8.5-10.1); Chloride 106 mmol/L (98-107); Creatinine, Serum 0.77 mg/dL (0.55-1.02); EST Glomerular Filtration Rate 77 mL/min (>60); Est Glom Filt Rate - Afr Amer 93 mL/min (>60); Estimated Creatinine Clearance 36.68 ml/min; Glucose 105 mg/dL (74-106); Potassium 3.8 mmol/L (3.5-5.1); Sodium Level 138 mmol/L (136-145)
[2023-05-12 00:07] LABS: Color, Urine Yellow (Yellow); Glucose, Dipstick Normal (Normal); Ketone-Dipstick 50 mg/dl (Negative); Leukocyte Esterase-Dipstick 500 /ul (Negative); Nitrite-Dipstick Negative (Negative); Occult Blood-Urine 150 /ul (Negative); Protein-Dipstick 15 mg/dl (Negative); Specific Gravity, Urine 1.025 (1.002-1.030); Urine Bilirubin Dipstick Negative (Negative); Urine Clarity Clear (Clear); Urine Urobilinogen Normal (Normal)
[2023-05-12 00:15] LABS: Bacteria 1+ /hpf (None Seen); Mucous, Urine 1+ /hpf (<or=2+); Red Blood Cells-Urine 0-5 SEEN /hpf (0-5); Squamous Epithelial Cells - UA 0-5 SEEN /hpf (5-10); Transitional Epithelial - Ur 0-5 SEEN /hpf (0-5); White Blood Cells 10-25 SEEN /hpf (0-5)
[2023-05-12 00:24] VITALS: BP 147/79; PULSE 86; RESP 16; O2SAT 98
[2023-05-12 00:28] VITALS: BP 164/85
[2023-05-12] MEDS: Cephalexin 250 MG Capsule 500 MG PO (00:42)
[2023-05-12 01:46] LABS: Differential Comment SCANNED
== END 2023-05-12 00:50 | disposition home or self-care (01) ==
PROVIDERS: Emergency Provider Emergency Medicine; Visit Provider Emergency Medicine
DX: U07.1 COVID-19 (principal); N39.0 Urinary tract infection, site not specified
CPT/HCPCS: 71045; 80048; 81001; 85025; 87086; 87088; 87428; 96360; 99283; J7030; A4216

== ENCOUNTER 2023-08-16 20:52 | Emergency (ER) | payer MEDICARE, SELFPAY ==
[2023-08-16 20:53] VITALS: BP 182/73; PULSE 76; RESP 15; TEMP 36.8; O2SAT 98; BMI 28.7
--- NOTE | 2023-08-16 21:18 | EDS_ITS ---
HPI History of Present Illness Chief Complaint: Dizziness Informant: patient Narrative Narrative: Presents with vertigo symptoms for 2 days feeling off balance. Yesterday more significant at times spinning. She use Dramamine at home with improving symptoms. Has had this previously. She states only last 1 day this is lasting 2 days. Symptoms subsided today however secondary to lasting longer she came here for evaluation. She does not have a PCP. No medications taken today. No ear pain. No sinus congestion. No tinnitus. No speech changes. No weakness or hemiparesis. No paresthesias. Prior similar symptoms: Yes PFSH PFSH Home Medications cephalexin 500 mg capsule 500 mg PO BID #14 caps 05/12/23 [Rx Last Taken Unknown] meclizine 25 mg tablet 25 mg PO TID PRN dizziness #20 tabs 08/16/23 [Rx Last Taken Unknown] Allergy/AdvReac Type Severity Reaction Status Date / Time No Known Allergies Allergy Verified 08/16/23 20:56 Surgical History History of appendectomy Social History Smoking Status: Never smoker ROS ROS ED Constitutional Constitutional ED: Denies chills, fever(s) or sweats Eyes Eyes: Denies change in vision ENT ENT ED: Denies dysphagia or sore throat Cardiovascular Cardiovascular: Denies chest pain, leg edema, palpitations or racing heartbeat Respiratory/Chest Respiratory/Chest: Denies cough, dyspnea or dyspnea on exertion Gastrointestinal Gastrointestinal: Denies abdominal pain, diarrhea, nausea or vomiting Genitourinary Genitourinary ED: Denies dysuria, hematuria or urinary frequency Musculoskeletal Musculoskeletal: Denies back pain, extremity pain or neck pain Integumentary Denies rash or wounds Neurologic Neurologic: Reports other Details: Dizzy ; Denies headache(s), paresthesias or weakness EXAM Physical Exam Const Vital Signs: 08/16/23 20:53 08/16/23 21:09 Temperature 98.2 F Temperature Source Temporal Pulse Rate 76 Respiratory Rate 15 Respiratory Effort Normal Non-Labored Respiratory Pattern Normal Blood Pressure 182/73 H Blood Pressure Mean 109 Pulse Ox 98 Oxygen Delivery Method Room Air Positive well nourished and well developed General Appearance ED: well developed and NAD HEENT Reports moist mucous membranes normocephalic and atraumatic Eyes PERRL, EOMs intact bilaterally and conjunctivae normal Eyes Narrative: No nystagmus of the eyes. General Eye ED: Yes normal appearance of both eyes Neck no lymphadenopathy and supple General: Negative for tenderness Chest Wall Chest: Negative for tenderness Resp normal respiratory effort and normal air movement Effort and Inspection: symmetric chest movement; Negative for respiratory distress Cardio regular rate, regular rhythm and no murmurs Peripheral Pulses: pulses 2+ throughout GI normal to inspection, nondistended, normoactive bowel sounds and non-tender Palpation: Negative for guarding or rebound tenderness present Back/Spine no CVA tenderness and no thoracic nor lumbar tenderness Extremity normal to inspection General Extremety ED: Negative for edema or tenderness General Extremity: Negative for edema Neuro oriented x3, CN's II-XII intact bilaterally and no sensory deficits noted Neuro Narrative: [place]-Hallpike was negative. NIH of 0. Patient ambulated with a normal gait no ataxia. Cerebellar upper and lower intact and symmetric. Sensorium / Orientation: awake and alert Skin no rashes or lesions noted and no wounds MDM MDM MDM Narrative Medical decision making narrative: Interventions / MDM: Differential diagnosis: Vertigo Diagnosis considered but do not suspect: No clinical stroke symptoms with improving symptoms at this time. My EKG interpretation: N/A Imaging independently reviewed and interpreted by myself: N/A External documents reviewed: N/A Test considered but not ordered:N/A ED course: Patient nontoxic no focal neurologic deficits. Presenting with vertigo type symptoms. She is able to ambulate. She is having improving symptoms compared to yesterday. She use Dramamine yesterday states it did help her symptoms. She has had this previously. She drove herself here for meds to bed with meclizine to use as needed. Strict return precaution discussed. She does not have a PCP, therefore given outpatient follow-up with on-call physician. All questions were answered. Re-evaluation: stable Disposition discussed with patient/family/significant other: Patient Case discussed with consulting clinician: N/A This note was generated with [employer] dictation software. It may contain incorrect words, spelling, and punctuation that were not noted in checking the note before signing. Discharge Plan Triage Chief Complaint: Dizziness ED Provider: Roque Posey Dx/Rx/DC Orders Clinical Impression: Vertigo Instructions: ED Vertigo, Unspecified Prescriptions: New meclizine [meclizine] 25 mg tablet 25 mg PO TID PRN (Reason: dizziness) Qty: 20 0RF No Action cephalexin 500 mg capsule 500 mg PO BID Qty: 14 0RF Primary Care Provider: Care Physician,No Primary Referrals: Marion Silva DO [Med Staff - Active Staff] - 1 Week Care Physician,No Primary [Primary Care Provider] - Activity Restrictions/Additional Instructions: Use medication as prescribed. Follow-up as an outpatient. If symptoms worsens not controlled with medications, return to ED for reevaluation. Disposition Disposition: Home, Self Care Discharge Date/Time: 08/16/23 21:41
--- OUTSIDE RECORDS SUMMARY | 2023-08-16 21:20 | XMS RPT_ITS | CCD ---
Author Name Unknown Address [address] [place] [address] Organization [facility] Results Test Name Value Interpretation Reference Range Facil ity Summary Purpose Family History No Family History Records Found Advance Directives No Advanced Directives Records Found Additional Source Comments INFORMATION SOURCE (unrecogn ized section and content) FOR RECORDS PERTAINING TO PATIENTS WHO ARE OR HAVE BEEN ENROLLED IN A CHEMICAL DEPENDENCY/SUBSTANCEABUSE PROGRAM, SOME INFORMATION MAY BE OMITTED. This clinical summary was aggregated from multiple sources. Caution should be exercised in using it in the provision of clinical care. This summary normalizes information from multiple sources, and as a consequence, information in this document may materially change the coding, format and clinical context of patient data. In addition, data may be omitted in some cases. CLINICAL DECISIONS SHOULD BE BASED ON THE PRIMARY CLINICAL RECORDS. [employer] provides no warranty or guarantee of the accuracy or completeness of information in this document.
== END 2023-08-16 21:41 | disposition home or self-care (01) ==
LOC: ED 21:18
PROVIDERS: Emergency Provider Emergency Medicine; Visit Provider Emergency Medicine
DX: R42 Dizziness and giddiness (principal)
CPT/HCPCS: 99282